=== PATIENT | male | born 1985 | race Hispanic/Latino ===

== ENCOUNTER 2020-03-18 10:04 | Emergency (ER) | payer SELFPAY ==
[2020-03-18] MEDS ORDERED: ONDANSETRON HCL 4 MG/2 ML VIAL ONE (11:04)
[2020-03-18 11:23] LABS: APPEARANCE,URINE Clear (CLEAR); BILIRUBIN,URINE Negative (NEGATIVE); COLOR,URINE Yellow (YELLOW); GLUCOSE, URINE (UA) Negative (NEGATIVE); KETONES,URINE Negative (NEGATIVE); LEUKOCYTE ESTERASE ,URINE Negative (NEGATIVE); NITRATE,URINE Negative (NEGATIVE); OCCULT BLOOD,URINE Negative (NEGATIVE); PH,URINE 5.5 (5.0-8.0); PROTEIN,URINE Negative (NEGATIVE); UROBILINOGEN,URINE 0.2 mg/dL (0.2-1.0)
[2020-03-18 11:28] LABS: BASOPHILS % (AUTO) 0.2 % (0.0-5.0); EOSINOPHILS % (AUTO) 1.8 % (0.0-8.0); HEMATOCRIT 47.7 % (42-54); LYMPHOCYTES % (AUTO) 19.4 % (21.0-51.0); MEAN CORPUSCULAR HEMOGLOBIN 30.2 pg (27.0-33.0); MEAN CORPUSCULAR HGB CONC 34.8 g/dL (32.0-36.0); MEAN CORPUSCULAR VOLUME 86.9 fL (79-99); MONOCYTES % (AUTO) 6.1 % (3.0-13.0); NEUTROPHILS % (AUTO) 72.1 % (40.0-77.0); PLATELET COUNT (AUTO) 180 K/uL (130-400); RED BLOOD CELL COUNT(AUTO) 5.49 MIL/uL (4.50-6.20); RED CELL DISTRIBUTION WIDTH 12.4 % (11.0-15.5); WHITE BLOOD COUNT (AUTO) 8.1 K/uL (4.8-10.8)
[2020-03-18 11:32] LABS: POTASSIUM 3.6 mmol/L (3.5-5.1)
[2020-03-18 11:32] LABS: AMPHET/METH SCREEN,URINE NEGATIVE (NEGATIVE); BARBITURATE SCREEN, URINE NEGATIVE (NEGATIVE); BENZODIAZEPINES SCREEN,URINE NEGATIVE (NEGATIVE); CANNABINOID SCREEN,URINE NEGATIVE (NEGATIVE); COCAINE SCREEN,URINE NEGATIVE (NEGATIVE); OPIATE SCREEN,URINE NEGATIVE (NEGATIVE); PHENCYCLIDINE SCREEN,URINE NEGATIVE (NEGATIVE)
[2020-03-18 11:36] LABS: ALBUMIN 3.7 g/dL (3.5-5.0); BILIRUBIN,TOTAL 0.7 mg/dL (0.2-1.0); TOTAL PROTEIN, SERUM 7.6 g/dL (6.0-8.3)
== END 2020-03-18 12:13 | disposition home or self-care (01) ==
LOC: EDH 10:04
DX: R10.84 Generalized abdominal pain (principal); R11.0 Nausea; E11.9 Type 2 diabetes mellitus without complications; I10 Essential (primary) hypertension
CPT/HCPCS: 36415; 80053; 80305; 81003; 82948; 83690; 85025; 96374; 99283; J2405; J7030

== ENCOUNTER 2024-12-16 03:00 | Emergency (ER) | payer SELFPAY ==
[~2024-12-16] VITALS: Ht 175.3 cm; Wt 122.5 kg
[2024-12-16 03:41] LABS: BASOPHILS # (AUTO) 0.03 K/uL (0.00-0.20); BASOPHILS % (AUTO) 0.6 % (0.0-5.0); EOSINOPHILS # (AUTO) 0.08 K/uL (0.00-0.70); EOSINOPHILS % (AUTO) 1.6 % (0.0-8.0); HEMATOCRIT 42.8 % (42-54); IMMATURE GRANULOCYTE ABSOLUTE 0.03 K/uL (0-1); LYMPHOCYTES # (AUTO) 1.6 K/uL (1.0-4.8); LYMPHOCYTES % (AUTO) 31.1 % (21.0-51.0); MEAN CORPUSCULAR VOLUME 85.6 fL (79-99); MONOCYTES # (AUTO) 0.4 K/uL (0.1-1.0); MONOCYTES % (AUTO) 7.8 % (3.0-13.0); NEUTROPHILS # (AUTO) 2.9 K/uL (1.8-7.7); NEUTROPHILS % (AUTO) 58.3 % (40.0-77.0); PLATELET COUNT (AUTO) 170 K/uL (130-400); RED CELL DISTRIBUTION WIDTH 13.1 % (11.0-15.5)
[2024-12-16 03:43] LABS: APPEARANCE,URINE CLEAR (CLEAR); BILIRUBIN,URINE NEGATIVE (NEGATIVE); COLOR,URINE COLORLESS (YELLOW); GLUCOSE, URINE (UA) 500 mg/dL (NEGATIVE); KETONES,URINE NEGATIVE (NEGATIVE); LEUKOCYTE ESTERASE ,URINE NEGATIVE Leu/uL (NEGATIVE); NITRATE,URINE NEGATIVE (NEGATIVE); OCCULT BLOOD,URINE NEGATIVE (NEGATIVE); PROTEIN,URINE NEGATIVE (NEGATIVE); UROBILINOGEN,URINE 0.2 mg/dL (0.2-1.0)
[2024-12-16 03:50] LABS: ADD UA MICROSCOPIC YES
[2024-12-16 03:56] LABS: ALBUMIN 3.5 g/dL (3.5-5.0); BILIRUBIN,DIRECT 0.1 mg/dL (0.0-0.3); BILIRUBIN,TOTAL 0.2 mg/dL (0.2-1.0); TOTAL PROTEIN, SERUM 7.4 g/dL (6.0-8.3)
[2024-12-16 04:04] LABS: CREATININE 1.1 mg/dL (0.5-1.3); POTASSIUM 3.6 mmol/L (3.5-5.1)
--- NOTE | 2024-12-16 04:17 | ERN ---
General Chief Complaint: Palpitations Stated Complaint: PALPITATIONS Time Seen by MD: 03:10 History of Present Illness Initial Comments It was a 39-year-old male with a long history of alcohol consumption and high blood pressure. He states he started drinking approximately a case of beer a day for the last two days and then when he woke up this morning he experienced chest pain palpitations anxiety. He states he has no other past medical history. Timing/Duration: 24 hours Severity: moderate Associated Symptoms: chest pain, diaphoresis Allergies: Coded Allergies: No Known Drug Allergies (Unverified Allergy, Unknown, 03/18/20) Past Medical History Past Medical History: Anxiety, Diabetes-Type II, Hypertension Past Surgical History: None Social History Social History: ETOH Physical Exam General Appearance: (+) moderate distress Orientation: (+) alert, (+) oriented x 3 Eye: bilateral eye normal inspection, bilateral eye PERRL, bilateral eye EOMI Ear, Nose, Throat: (+) hearing grossly normal, (+) normal ENT inspection, (+) moist mucous membraine Neck: (+) normal inspection, (+) supple, (+) no JVD, (+) non-tender Respiratory: (+) chest non-tender, (+) lungs clear, (+) well ventilated Heart: (+) regular, (+) murmur Vascular: (+) no edema, (+) normal peripheral pulse, (+) no JVD Gastrointestinal: (+) soft, (+) non-tender, (+) bowel sound present Results Laboratory and Microbiology Lab and Micro Result Laboratory Tests Test 12/16/24 03:30 12/16/24 03:32 12/16/24 06:51 White Blood Count 5.0 K/uL (4.8-10.8) Red Blood Count 5.00 MIL/uL (4.50-6.20) Hemoglobin 15.0 g/dL (14.0-18.0) Hematocrit 42.8 % (42-54) Mean Corpuscular Volume 85.6 fL (79-99) Mean Corpuscular Hemoglobin 30.0 pg (27.0-33.0) Mean Corpuscular Hemoglobin Concent 35.0 g/dL (32.0-36.0) Red Cell Distribution Width 13.1 % (11.0-15.5) Platelet Count 170 K/uL (130-400) Mean Platelet Volume 11.0 fL (7.5-10.5) H Immature Granulocyte % (Auto) 0.6 % (0-1) Neutrophils (%) (Auto) 58.3 % (40.0-77.0) Lymphocytes (%) (Auto) 31.1 % (21.0-51.0) Monocytes (%) (Auto) 7.8 % (3.0-13.0) Eosinophils (%) (Auto) 1.6 % (0.0-8.0) Basophils (%) (Auto) 0.6 % (0.0-5.0) Neutrophils # (Auto) 2.9 K/uL (1.8-7.7) Lymphocytes # (Auto) 1.6 K/uL (1.0-4.8) Monocytes # (Auto) 0.4 K/uL (0.1-1.0) Eosinophils # (Auto) 0.08 K/uL (0.00-0.70) Basophils # (Auto) 0.03 K/uL (0.00-0.20) Absolute Immature Granulocyte (auto 0.03 K/uL (0-1) Nucleated Red Blood Cells 0.0 % (0.0-0.19) Sodium Level 128 mmol/L (136-145) L 139 mmol/L (136-145) Potassium Level 3.6 mmol/L (3.5-5.1) 3.5 mmol/L (3.5-5.1) Chloride Level 94 mmol/L (101-111) L 102 mmol/L (101-111) Carbon Dioxide Level 27 mmol/L (21-32) 27 mmol/L (21-32) Blood Urea Nitrogen 15 mg/dL (7-18) 6 mg/dL (7-18) L Creatinine 1.1 mg/dL (0.5-1.3) 0.8 mg/dL (0.5-1.3) Glomerular Filtration Rate Calc 87 mL/min (>90) 115 mL/min (>90) Random Glucose 94 mg/dL (70-105) 237 mg/dL (70-105) #H Total Calcium 8.7 mg/dL (8.5-10.1) 8.1 mg/dL (8.5-10.1) L Total Bilirubin 0.2 mg/dL (0.2-1.0) Direct Bilirubin 0.1 mg/dL (0.0-0.3) Aspartate Amino Transf (AST/SGOT) 17 U/L (10-37) Alanine Aminotransferase (ALT/SGPT) 34 U/L (12-78) Alkaline Phosphatase 91 U/L (50-136) Total Creatine Kinase 170 U/L (21-232) Troponin I High Sensitivity 9 ng/L (4-75) B-Type Natriuretic Peptide 42 pg/mL (0-100) Total Protein 7.4 g/dL (6.0-8.3) Albumin 3.5 g/dL (3.5-5.0) Serum Alcohol 36 mg/dL (0-10) H Urine Color COLORLESS (YELLOW) Urine Appearance CLEAR (CLEAR) Urine pH 7.0 (5.0-8.0) Urine Specific [place] 1.005 (1.001-1.031) Urine Protein NEGATIVE mg/dL (NEGATIVE) Urine Glucose (UA) 500 mg/dL (NEGATIVE) H Urine Ketones NEGATIVE mg/dL (NEGATIVE) Urine Occult Blood NEGATIVE (NEGATIVE) Urine Nitrate NEGATIVE (NEGATIVE) Urine Bilirubin NEGATIVE mg/dL (NEGATIVE) Urine Urobilinogen 0.2 mg/dL (0.2-1.0) Urine Leukocyte Esterase NEGATIVE Zacarias/uL Urine RBC None /HPF (0-1) Urine WBC 2-5 /HPF (0-1) H Urine Bacteria None /HPF (None Seen) MDM Patient comes to the emergency room with a constellation of symptoms suggesting a panic attack; however, we can not safely rule out cardiac cause of his symptoms. We are doing a cardiac workup with cardiac enzymes and an EKG. I am also doing chemistry panel CBC and LFTs plus a blood alcohol level. Dr. Manning took over care at 7:00 a.m. on 12/16/2024 pending re-evaluation and disposition. CC: Chest tightness palpitation, recent history of binge drinking Historian: Patient Comorbidities: Diabetes, hypertension, anxiety, alcohol abuse, obesity Limitations by social the terms felt: Unsure Differential diagnosis: Anxiety, withdrawal, arrhythmia, ACS, other. Initial vital signs: Hypertensive 186/83, pulse 90, rest of the vital signs are stable. EKG: Sinus rhythm rate of 91 left axis deviation good R progression intervals are stable no STEMI. Independently interpreted by me. Labs ( independently ordered interpreted by me): Chemistry panel shows sodium 128 and chloride 94 consistent with dehydration, glucose 237, otherwise electrolytes are all stable. CK is within normal limits. Liver enzymes are all normal. CBC is unremarkable. alcohol level mildly elevated at 36. Urinalysis unremarkable. BNP is normal. CXR ( independently interpreted by me ): No cardiomegaly pleural effusions or focal infiltrates. Treatment in ED: 2 L normal saline for dehydration Plan: Will DC. Symptoms are likely related to alcohol withdrawal to the palpitations anxiety type symptoms. His EKG is normal troponin is normal. He has a heart score three, so can be managed as an outpatient. ED Course Orders Procedure Category Date Status Time Vital Signs Per CPOE 12/16/24 Transmitted Routine 03:05 B-Type Natriuretic LAB 12/16/24 Complete Peptide 03:05 Chest 1vw RAD 12/16/24 Taken 03:05 Oxygen By Nc/Pulse Ox CPOE 12/16/24 Transmitted 03:05 Maintain Iv CPOE 12/16/24 Transmitted 03:05 Iv Insertion CPOE 12/16/24 Transmitted 03:05 Cardiac Monitoring CPOE 12/16/24 Transmitted 03:05 Pulse Oximetry With CPOE 12/16/24 Transmitted Vs And Prn 03:05 Cbc With Differential LAB 12/16/24 Complete 03:05 Activity: Br W/Brp CPOE 12/16/24 Transmitted With Assist 03:05 Creatine Kinase, Total LAB 12/16/24 Complete 03:05 Troponin I High LAB 12/16/24 Complete Sensitivity 03:05 Urinalysis Profile LAB 12/16/24 Complete 03:05 Basic Metabolic Panel LAB 12/16/24 Complete 03:05 12 Lead Ekg Tracing- EKG 12/16/24 Complete Technical 03:11 Hepatic Function Panel LAB 12/16/24 Complete 03:11 Alcohol, Blood LAB 12/16/24 Complete 03:11 Lactated Ringers PHA 12/16/24 Complete 1000ml (Lactated 04:00 0.9%Nacl 1000ml (Ns PHA 12/16/24 In Process 1000ml) 05:30 Basic Metabolic Panel LAB 12/16/24 Complete 05:56 Orthostatic Vital CPOE 12/16/24 Transmitted Signs 05:56 0.9%Nacl 1000ml (Ns PHA 12/16/24 Complete 1000ml) 06:30 Current Medications Medications (Trade) Dose Ordered Sig/Felicitas Route PRN Reason Start Time Stop Time Status Last Admin Dose Admin Lactated Ringer's 708 ml @ 236 mls/hr ONCE ONCE IV 12/16/24 04:00 12/16/24 06:15 DC Sodium Chloride 708 ml @ 236 mls/hr ONCE ONCE IV 12/16/24 05:30 12/16/24 08:29 12/16/24 05:46 Sodium Chloride 1,000 ml @ 0 mls/hr Q0M ONCE IV 12/16/24 06:30 12/16/24 06:31 DC 12/16/24 06:24 Vital Signs Date Time Temp Pulse Resp B/P (MAP) Pulse Ox O2 Delivery O2 Flow Rate FiO2 12/16/24 06:38 98.2 86 20 142/82 97 Room Air* 0 21 152/99 129/82 12/16/24 04:32 98.4 91 18 155/88 98 Room Air* 0 21 12/16/24 03:06 98.8 90 16 186/83 97 Room Air 0 HEART Score Response (Comments) Value History: Low suspicion (0) 0 EKG: Normal (Evidence of old infarct, no ST elevations or depressions.) 0 Age: < 45yrs (0) 0 Risk Factors: 1-2 risk factors (+1) 1 Initial Troponin: Normal limit (0) 0 HEART Score Risk: Low Risk for MACE (1-3) Total 1 DX & DISP Disposition: Discharge Departure Impression: Primary Impression: Alcohol withdrawal Additional Impressions: Hypertension, Hyponatremia, Dehydration Condition: Stable Additional Instructions: Your symptoms are likely related to alcohol withdrawal. Your heart rate was initially elevated but improved in the ER. Her blood pressure was initially elevated but improved in the ER. Her EKG is normal. Her chest x-ray is normal. Your blood work shows normal cardiac enzymes. Your sodium level was low due to dehydration. It was corrected here in the ER with an IV normal saline. I recommend reducing alcohol intake. Please follow up with her primary doctor. Referrals: SELF,REFERRAL (PCP) KESHA CURIEL MD Dec 16, 2024 04:17 GUILLE MANNING DO Dec 16, 2024 07:47
[2024-12-16 04:59] LABS: B-TYPE NATRIURETIC PEPTIDE 42 pg/mL (0-100)
[2024-12-16] MEDS: 0.9%NACL 1000ML 708 ML IV ONE (05:46)
[2024-12-16] MEDS: 0.9%NACL 1000ML 1,000 ML IV ONE (06:24)
--- NOTE | 2024-12-16 07:05 | NUR ---
Assumd patients care at this time.
[2024-12-16 07:07] LABS: CREATININE 0.8 mg/dL (0.5-1.3); POTASSIUM 3.5 mmol/L (3.5-5.1)
--- NOTE | 2024-12-16 07:20 | EKG ---
[facility] Test Date: 2024-12-16 Test Time: 03:12:58 Pat Name: MONTANA CHRISTIE Department: ED Room: Gender: M Phytopathologist: [id number] : 1985 Requested By: KESHA CURIEL Order Number: [id number] Reading MD: Tulio Pena Measurements Intervals [place] Rate: 91 P: 10 MD: 176 QRS: -22 QRSD: 100 T: 29 QT: 345 QTc: 426 Interpretive Statements Sinus rhythm Poor R wave progression Electronically Signed On 12-16-2024 12:32:17 CDT by Tulio Pena Please click the below link to view image of tracing.
--- NOTE | 2024-12-16 07:46 | NUR ---
Notify Dr. Valdez of patients blood pressure being at 170/100 mmhg. ( view orders)
[2024-12-16 07:49] VITALS: BP 170/100; PULSE 81; RESP 15; TEMP 98.4; O2SAT 99
[2024-12-16] MEDS ORDERED: hydrALAZine 20MG/ML VIAL IV ONE (08:00)
[2024-12-16] MEDS: hydrALAZine 20MG/ML VIAL ONE (08:12)
--- NOTE | 2024-12-16 09:28 | HMCIMG ---
CHEST 1VW HISTORY: Chest pain COMPARISON: None FINDINGS: A frontal projection of the chest was obtained. No acute pulmonary infiltrates is seen. The heart is normal in size. Mild degenerative changes are seen. No evidence of aortic calcification is seen. IMPRESSION: 1. No acute pulmonary infiltrate is seen.
== END 2024-12-16 08:45 | disposition home or self-care (01) ==
LOC: EDH 03:00
DX: F10.939 Alcohol use, unspecified with withdrawal, unspecified (principal); I10 Essential (primary) hypertension; E87.1 Hypo-osmolality and hyponatremia; E86.0 Dehydration; E11.9 Type 2 diabetes mellitus without complications; E66.9 Obesity, unspecified; F41.9 Anxiety disorder, unspecified; Y90.1 Blood alcohol level of 20-39 mg/100 ml
CPT/HCPCS: 99285; 96374; 71045; 96361; 82550; 80076; 84484; 80048 ×2; 83880; 85025; 81001; 36415; 93005; J7030 ×2; J0360